=== PATIENT | female | born 1965 | race Caucasian/White ===

== ENCOUNTER 2018-08-26 09:53 | Observation (INO) ==
[2018-08-26] MEDS ORDERED: Bisacodyl 10 MG Supp RECTAL PRN (12:48)
[2018-08-26] MEDS ORDERED: Acetaminophen 325 MG Tablet PO PRN (12:48)
[2018-08-26] MEDS ORDERED: Benzonatate 100 MG Capsule PO PRN (15:51)
--- NOTE | 2018-08-26 16:32 | P.HP ---
History of Present Illness Primary Care Physician: No Primary Care Physician Chief Complaint: syncope History of Present Illness: This is a 53-year-old female with no significant past medical history. She presents to the emergency room because syncope. Yesterday she woke up not feeling well complaining of cold sensation, runny nose and cough. She took Grace -Minetto and went to bed. She woke up few hours later still feeling tired and went back to bed. In the evening she went out to have dinner with friends and after drinking a beer she felt warm like "super hot" and dizzy then passed out. She struck her head on the ground and right shoulder. According to ER physician, tried to pick her up and noted she had some garbled speech and then had another syncopal episode. He called 911 but nobody answered. They then decided to come into the emergency room this morning. Denies fever, chills, headache, shortness of breath, chest pain, abdominal pain, UTI symptoms and diarrhea. At this time, she feels good only complaint is right shoulder pain whenever she coughs. ER workup as follows; chest CTA with no PE, granulomatous changes involving the bilateral lungs bilateral dominga and mediastinum. 1.4 cm adrenal nodule and 8 mm hyperdense lesion in the right kidney. Chest x-ray image interpreted by me with no acute cardiopulmonary disease. Negative head CT as well as shoulder x-ray. EKG tracing interpreted by me with sinus rhythm. She also has elevated BP readings denies history of hypertension but has not seen a medical doctor for some time. All other systems reviewed negative Review of Systems All other systems reviewed negative except as stated in HPI [facility] - History History Provided By: Patient - Medical History Medical History: Medical History (Last Reviewed 08/26/18 @ 16:26 by Felice Collazo MD) Patient denies medical problems - Surgical History Surgical History: Surgical History (Last Reviewed 08/26/18 @ 16:26 by Felice Collazo MD) Hx of tonsillectomy - Family History Family History: Family History (Last Updated 08/26/18 @ 16:27 by Felice Collazo MD) Other Family history of acute myocardial infarction - Tobacco History Second Hand Smoke Exposure: No Tobacco Use In Past 30 Days: Yes Smoking Status: Heavy tobacco smoker Tobacco Type: Cigarettes - Alcohol History How Often Do You Have a Drink Containing Alcohol: 2 to 4 times a month - Substance Use History Substance History: No History of Abuse Medications and Allergies Active Medications: Active Medications Acetaminophen (Tylenol) 650 mg PO Q4H PRN PRN Reason: Temp > 100.4 Al Hydroxide/Mg Hydroxide (Milk Of Magnesia Liq) 30 ml PO Q12H PRN PRN Reason: Mild Constipation Benzonatate (Tessalon Perles) 200 mg PO Q8H PRN PRN Reason: COUGH Bisacodyl (Dulcolax Supp) 10 mg RECTAL DAILY PRN PRN Reason: SEVERE CONSITIPATION Clonidine HCl (Catapres) 0.1 mg PO Q6H PRN PRN Reason: SEE LABEL COMMENTS Enalaprilat (Vasotec Inj) 1.25 mg IV.PUSH Q6H PRN PRN Reason: SEE LABEL COMMENTS Guaifenesin (Mucinex Er) 600 mg PO BID BRIANA Sodium Chloride (Ns Inj) 1,000 mls @ 84 mls/hr IV.CONT .[id number] BRIANA Lactulose (Lactulose Liq) 30 ml PO DAILY PRN PRN Reason: SEVERE CONSITIPATION Senna/Docusate Sodium (Tanya-Colace) 1 tab PO BID BRIANA Sennosides (Senokot) 17.2 mg PO Q12H PRN PRN Reason: Moderate Constipation Sodium Chloride (Ns Flush) 2 ml IV.FLUSH PRN PRN PRN Reason: FLUSH AFTER USING IV ACCESS Allergies Allergy/AdvReac Type Severity Reaction Status Date / Time No Known Allergies Allergy Unverified 08/26/18 10:10 Home Medications Medication Instructions Recorded Confirmed Type No Known Home Medications 08/26/18 08/26/18 History Exam Vital signs: Blood pressure 192/103 heart rate of 88 respiratory rate 16 oxygen saturation 93 % on room air temperature 98.1F Narrative: GENERAL: Well-developed, well-nourished in no distress SKIN: Warm and dry. HEAD: Atraumatic. Normocephalic. EYES: Pupils equal and round. No scleral icterus. No injection or drainage. ENT: No nasal bleeding or discharge. Dry oral mucosa NECK: Trachea midline. No JVD. CARDIOVASCULAR: Regular rate and rhythm. RESPIRATORY: No accessory muscle use. Clear to auscultation. Breath sounds equal bilaterally. GASTROINTESTINAL: Abdomen soft, non-tender, nondistended. MUSCULOSKELETAL: Extremities without clubbing, cyanosis, or edema. No obvious deformities. NEUROLOGICAL: Awake and alert. No obvious cranial nerve deficits. Motor grossly within normal limits. Five out of 5 muscle strength in the arms and legs. Normal speech. PSYCHIATRIC: Appropriate mood and affect; insight and judgment normal. Caprini VTE Risk Assessment Caprini VTE Risk Assessment: Moderate/High Risk (score >= 2) Caprini Risk Assessment Model: Point Value = 1 Point Value = 2 Point Value = 3 Point Value = 5 Age 41-60 Minor surgery BMI > 25 kg/m2 Swollen legs Varicose veins or History of unexplained or recurrent spontaneous Oral contraceptives or hormone replacement Sepsis (< 1 month) Serious lung disease, including pneumonia (< 1 month) Abnormal pulmonary function Acute myocardial infarction Congestive heart failure (< 1 month) History of inflammatory bowel disease Medical patient at bed rest Age 61-74 Arthroscopic surgery Major open surgery (> 45 min) Laparoscopic surgery (> 45 min) Malignancy Confined to bed (> 72 hours) Immobilizing plaster cast Central venous access Age >= 75 History of VTE Family history of VTE Factor V Leiden Prothrombin [id number] Lupus anticoagulant Anticardiolipin antibodies Elevated serum homocysteine Heparin-induced thrombocytopenia Other congenital or acquired thrombophilia Stroke (< 1 month) Elective arthroplasty Hip, pelvis, or leg fracture Acute spinal cord injury (< 1 month) Prophylaxis Regimen: Total Risk Factor Score Risk Level Prophylaxis Regimen 0-1 Low Early ambulation 2 Moderate Order ONE of the following: *Sequential Compression Device (SCD) *Heparin 5000 units SQ BID 3-4 Higher Order ONE of the following medications: *Heparin 5000 units SQ TID *Enoxaparin/Lovenox 40 mg SQ daily (WT < 150 kg, CrCl > 30 mL/min) *Enoxaparin/Lovenox 30 mg SQ daily (WT < 150 kg, CrCl > 10-29 mL/min) *Enoxaparin/Lovenox 30 mg SQ BID (WT < 150 kg, CrCl > 30 mL/min) AND/OR *Sequential Compression Device (SCD) 5 or more Highest Order ONE of the following medications: *Heparin 5000 units SQ TID (Preferred with Epidurals) *Enoxaparin/Lovenox 40 mg SQ daily (WT < 150 kg, CrCl > 30 mL/min) *Enoxaparin/Lovenox 30 mg SQ daily (WT < 150 kg, CrCl > 10-29 mL/min) *Enoxaparin/Lovenox 30 mg SQ BID (WT < 150 kg, CrCl > 30 mL/min) AND *Sequential Compression Device (SCD) Assessment and Plan - Plan This is a 53-year-old female who came in because of syncope. Has been having URI symptoms and had a syncopal episode after drinking beer. Clinically looks dehydrated Syncope which is multifactorial likely from dehydration and alcohol. Head CT without acute findings which she is neurologically intact. Will give additional 1 L of IV fluids. Monitor on telemetry and check echocardiogram, carotid ultrasound and EEG New onset HTN. Obviously contributing to her symptoms. Continue to monitor with as needed clonidine and Vasotec. URI. Chest x-ray and flu screen negative. Symptomatic treatment Right kidney 8 mm hyperdense lesion. Outpatient follow-up 1.4 cm right adrenal nodule. Doubt symptoms related to pheochromocytoma. We will continue to monitor. Outpatient follow-up Abnormal urinalysis with no UTI symptoms. Monitor urine culture DVT prophylaxis with SCD and early ambulation Discharge Planning: in 1-2 days
[2018-08-26] MEDS: Sod Chloride 0.9% Inj 1,000 ML IV.CONT SCH (16:34)
--- NOTE | 2018-08-26 16:46 | ECHRPT ---
Indication: Syncope CONCLUSIONS Normal left ventricular size. Wall thickness is normal. The left ventricular systolic function is normal with an estimated ejection fraction in the range of 55-60%. Trace mitral valve regurgitation. There is trace tricuspid valve regurgitation. The estimated pulmonary arterial pressure is 29 mmHg. BP: / HR: Rhythm: MEASUREMENTS (Male / Female) Normal Values Technical Quality:Technically difficult study 2D ECHO LV Diastolic Diameter PLAX 3.2 cm 4.2 - 5.9 / 3.9 - 5.3 cm LV Systolic Diameter PLAX 2.3 cm IVS Diastolic Thickness 0.9 cm 0.6 - 1.0 / 0.6 - 0.9 cm LVPW Diastolic Thickness 0.9 cm 0.6 - 1.0 / 0.6 - 0.9 cm LV Relative Wall Thickness 0.6 RV Internal Dim ED PLAX 2.3 cm LVOT Diameter 1.8 cm Aortic Root Diameter 2.6 cm LA Systolic Diameter LX 2.7 cm 3.0 - 4.0 / 2.7 - 3.8 cm M-MODE AV Cusp Separation MM 1.8 cm DOPPLER AV Peak Velocity 138.0 cm/s AV Peak Gradient 7.6 mmHg LVOT Peak Velocity 79.0 cm/s LVOT Peak Gradient 2.5 mmHg AV Area Cont Eq pk 1.5 cm Mitral E Point Velocity 94.8 cm/s Mitral A Point Velocity 111.0 cm/s Mitral E to A Ratio 0.9 LV E' Lateral Velocity 13.1 cm/s Mitral E to LV E' Lateral Ratio 7.2 LV E' Septal Velocity 10.2 cm/s Mitral E to LV E' Septal Ratio 9.3 TR Peak Velocity 220.0 cm/s TR Peak Gradient 19.4 mmHg Right Atrial Pressure 10.0 mmHg Pulmonary Artery Systolic Pressu 29.4 mmHg Right Ventricular Systolic Press 29.4 mmHg PV Peak Velocity 110.0 cm/s PV Peak Gradient 4.8 mmHg FINDINGS LEFT VENTRICLE Normal left ventricular size. Wall thickness is normal. The left ventricular systolic function is normal with an estimated ejection fraction in the range of 55-60%. RIGHT VENTRICLE Normal right ventricular size and systolic function. LEFT ATRIUM The left atrial size is normal. RIGHT ATRIUM The right atrial size is normal. ATRIAL SEPTUM Normal atrial septal thickness without atrial level shunting by limited color doppler interrogation. AORTA The aortic root and proximal ascending aorta are normal in size on limited imaging. MITRAL VALVE Trace mitral valve regurgitation. AORTIC VALVE Trileaflet aortic valve. TRICUSPID VALVE There is trace tricuspid valve regurgitation. The estimated pulmonary arterial pressure is 29 mmHg. PULMONARY VALVE No pulmonary valve regurgitation or stenosis. VESSELS The inferior vena cava is normal in size. PERICARDIUM No pericardial effusion. Ildefonso Saunders MD, FACC (Electronically Signed) Final Date:26 August 2018 16:45
--- NOTE | 2018-08-26 17:35 | US ---
EXAM DATE: 08/26/2018 12:00 AM EDT AGE/SEX: 53 years / Female INDICATIONS: Syncope. CLINICAL DATA: This is the patient's initial encounter. Patient reports that signs and symptoms have been present for 1 day and indicates a pain score of 0/10. MEDICAL/SURGICAL HISTORY: . Syncope. Tonsillectomy. COMPARISON: No prior exams available for comparison. VELOCITY PARAMETERS: ICA/CCA Ratio: Right 1.5 , Left 1.5 ICA: Right 114 cm/sec, Left 136 cm/sec CCA: Right 78 cm/sec, Left 91 cm/sec ECA: Right 116 cm/sec, Left 202 cm/sec Vertebral: Right 69 cm/sec antegrade, Left 66 cm/sec antegrade FINDINGS: Right Carotid: Mild arteriosclerotic plaque is visualized.The waveforms are within normal limits. Left Carotid: Mild arteriosclerotic plaque is visualized. The waveforms are within normal limits. Other: None. CONCLUSION: 1. No hemodynamically significant stenosis in either carotid artery. Electronically signed by: Javier Rogers MD 08/26/2018 5:34 PM EDT
[2018-08-26 17:39] LABS: Amphetamine Screen,Urine Neg (Neg)
[2018-08-26 17:40] LABS: Barbiturate Screen,Urine Neg (Neg); Cannabinoid Screen,Urine Pos (Neg); Cocaine Screen,Urine Neg (Neg)
[2018-08-26 17:48] LABS: Opiate Screen,Urine Neg (Neg)
[2018-08-26] MEDS: Senna/Docusate Sodium 8.6/50 MG Tablet PO SCH ×2 (19:48→20:41)
[2018-08-26] MEDS: guaiFENesin 600 MG ER Tablet PO SCH ×2 (19:48→20:41)
[2018-08-27] MEDS: Sod Chloride 0.9% Inj 1,000 ML IV.CONT SCH ×2 (03:12→03:29)
[2018-08-27 05:56] LABS: Chloride 110 meq/L (98-107); Potassium 4.1 meq/L (3.5-5.1); Sodium 142 meq/L (136-145)
[2018-08-27 06:02] LABS: Calcium 7.7 mg/dL (8.5-10.1)
[2018-08-27 06:03] LABS: Anion Gap 6 meq/L (5-15); Blood Urea Nitrogen 13 mg/dL (7-18); Carbon Dioxide 26.5 meq/L (21.0-32.0); Glucose,Random 99 mg/dL (74-106)
[2018-08-27 06:06] LABS: Glomerular Filtration Rate Greater Than 89 mL/min (>89)
[2018-08-27 06:09] LABS: Creatine Kinase 112 U/L (26-192)
[2018-08-27] MEDS: Senna/Docusate Sodium 8.6/50 MG Tablet PO SCH (08:26)
[2018-08-27] MEDS: guaiFENesin 600 MG ER Tablet PO SCH (08:26)
[2018-08-27] MEDS ORDERED: amLODIPine 5 MG Tablet PO SCH (09:00)
[2018-08-27 09:02] VITALS: RESP 18
--- NOTE | 2018-08-27 10:03 | P.PN ---
Subjective Interval history: Follow-up syncope. She is doing okay. Ambulating in the hallway. Telemetry unremarkable. Physical Exam Vital signs: Vital Signs 08/26/18 16:00 08/26/18 17:50 08/26/18 18:16 Temperature 97.9 F Pulse Rate 76 77 71 Respiratory Rate 20 Blood Pressure 203/93 H 143/77 H Pulse Oximetry 94 L 08/26/18 20:00 08/27/18 00:00 08/27/18 03:51 Temperature 98.6 F 98.6 F 98.8 F Pulse Rate 70 78 72 Respiratory Rate 18 16 16 Blood Pressure 163/78 H 159/74 H 192/94 H Pulse Oximetry 96 97 97 08/27/18 08:00 Temperature 97.6 F Pulse Rate 73 Respiratory Rate 18 Blood Pressure 181/89 H Pulse Oximetry 97 Intake & Output 08/26/18 08/27/18 08/27/18 18:59 06:59 18:59 Intake Total 360 / 360 1000 / 1000 Balance 360 / 360 1000 / 1000 Weight 79.3 kg 81.1 kg Intake: IV 1000 / 1000 NS Inj 1,000 ML @ 84 mls/hr IV. 1000 / 1000 CONT .[id number] BRIANA Rx#: [id number] Oral 360 / 360 Other: # Voids 1 2 # Bowel Movements 1 Weight On Admission 79.3 kg Narrative: GENERAL: Well-developed, well-nourished in no distress SKIN: Warm and dry. CARDIOVASCULAR: Regular rate and rhythm. RESPIRATORY: No accessory muscle use. Clear to auscultation. Breath sounds equal bilaterally. GASTROINTESTINAL: Abdomen soft, non-tender, nondistended. MUSCULOSKELETAL: Extremities without clubbing, cyanosis, or edema. No obvious deformities. NEUROLOGICAL: Awake and alert. No obvious cranial nerve deficits. Motor grossly within normal limits. Five out of 5 muscle strength in the arms and legs. Normal speech. PSYCHIATRIC: Appropriate mood and affect; insight and judgment normal. Results - Labs CBC & Chem 7: 08/27/18 05:17 Laboratory Results - last 24 hr 08/26/18 08/27/18 17:20 05:17 Sodium 142 Potassium 4.1 Chloride 110 H Carbon Dioxide 26.5 Anion Gap 6 BUN 13 Creatinine 0.62 Estimated GFR Greater than 89 Random Glucose 99 Calcium 7.7 L D Magnesium 2.0 Total Creatine Kinase 112 Urine Opiates Screen Neg Ur Barbiturates Screen Neg Ur Amphetamines Screen Neg U Benzodiazepines Scrn Neg Urine Cocaine Screen Neg U Cannabinoids Screen Pos H - Imaging ITS Impressions Carotid Doppler Study 08/26/18 00:00 CONCLUSION: 1. No hemodynamically significant stenosis in either carotid artery. - Procedures none Assessment and Plan - Plan This is a 53-year-old female who came in because of syncope. Has been having URI symptoms and had a syncopal episode after drinking beer. Clinically looks dehydrated Syncope which is multifactorial likely from dehydration and alcohol. Syncope workup negative with head CT, carotid ultrasound and echocardiogram. Follow-up pending EEG. Dehydration has resolved after receiving IV fluids. Counseled regarding alcohol use. Patient not allowed to drive until cleared by her physician w New onset HTN. Obviously contributing to her symptoms. Continue to monitor with as needed clonidine and Vasotec. Start Norvasc URI. Chest x-ray and flu screen negative. Symptomatic treatment Right kidney 8 mm hyperdense lesion. Outpatient follow-up 1.4 cm right adrenal nodule. Doubt symptoms related to pheochromocytoma. We will continue to monitor. Outpatient follow-up Abnormal urinalysis with no UTI symptoms. Monitor urine culture with immature growth to date DVT prophylaxis with SCD and early ambulation Discharge Planning: Discharge patient to home Condition on discharge: Improved Regular Diet as tolerated Ad Dana activity no driving Rx written: Norvasc Follow-up with primary care physician
[2018-08-27 12:00] VITALS: BP 163/87; PULSE 62; TEMP 97; O2SAT 98
--- NOTE | 2018-08-27 14:52 | MG ---
cc: Robert Henderson MD, PhD TEST NUMBER: [id number] TECHNIQUE: A 17-channel EEG. DESCRIPTION: The background rhythm is symmetrical alpha rhythm. Frequency is roughly 8-9 Hz. Amplitude is about 20 microvolts. There are no lateralizing features present. There are no epileptiform features. Hyperventilation was not done. Photic stimulation results in a normal driving response. INTERPRETATION: This is a normal electroencephalogram. Robert Henderson MD, PhD DANICA/ct , 02:25 PM , 02:31 PM
== END 2018-08-27 16:01 | disposition home or self-care (01) ==
LOC: PHEDDLT 15:20 → PH3 15:20
PROVIDERS: ADMIT Internal Medicine; ATTEND Internal Medicine